=== PATIENT | female | born 1970 | race Caucasian/White ===

== ENCOUNTER → 2017-10-03 | Outpatient (CLI) | payer OTHER ==
--- NOTE | 2017-10-03 16:24 | DIAGNOSTIC IMAGING REPORT ---
MRI CERVICAL WITHOUT CONTRAST CLINICAL HISTORY: M47.812 NECK PAIN WITH SPASMS. C3-4 SUBLUXATION. TECHNIQUE: Sagittal and axial T2-weighted images were acquired in flexion neutral and extension. COMPARISON STUDY: No previous studies for comparison. There are no suspicious areas of marrow replacement. No intrinsic cervical cord lesions are visualized. C2-3: There is 2 mm of anterior subluxation of C2 on 3 in flexion. This reduces in extension. Significant instability is not felt to be present. There is a mild circumferential disc bulge with prominence of the posterior longitudinal ligament. There is no significant spinal or foraminal stenosis. C3-4: There is 3 mm of anterior subluxation of C3 on C4 in flexion. This measures 2 mm in extension. There is a mild circumferential disc bulge with hypertrophy of the posterior longitudinal ligament. There is minimal spinal canal narrowing. There is no significant foraminal stenosis. C4-5: There is a mild circumferential disc bulge. There is no significant spinal or foraminal stenosis. There is no instability on flexion or extension C5-6 :There is an annular fissure, and tiny left-sided disc protrusion. There is no significant spinal stenosis. There is no significant foraminal narrowing. C6-7: There is a very small left foraminal disc protrusion. There is no significant spinal stenosis. There is minimal left-sided foraminal narrowing. There is no instability on flexion or extension C7-T1: There is a minimal disc bulge. There is no significant spinal or foraminal stenosis. There is no instability on flexion or extension. IMPRESSION: 1. Multilevel spondylitic changes 2. 2 mm of anterior subluxation of C2 on C3 in flexion. No evidence of significant instability 3. 3 mm of anterior subluxation of C3 on C4 in flexion. No evidence of significant instability 4. Minimal spinal canal narrowing at the C3-4 level. 5. C5-6 annular fissure and tiny left-sided disc protrusion 6. Very small left foraminal disc protrusion the C6-7 level with minimal left-sided foraminal narrowing. Electronically signed by: Kendrick García M.D. 10/03/2017 4:23 PM Dictated Date/Time: 10/03/2017 4:14 PM
== END | disposition home or self-care (01) ==
LOC: C.MRIBC 15:28
PROVIDERS: ATTEND Neurological Surgery
DX: M47.812 Spondylosis without myelopathy or radiculopathy, cervical region (principal); M99.11 Subluxation complex (vertebral) of cervical region; M50.323 Other cervical disc degeneration at C6-C7 level